=== PATIENT | male | born 1980 | race Hispanic/Latino ===

== ENCOUNTER 2020-05-17 07:39 | Outpatient (CLI) | payer OTHER ==
[2020-05-17 10:25] LABS: #Basophils 0.1 thou/uL (0.0-0.2); #Eosinphils 0.1 thou/uL (0.0-0.7); #Lymphocytes 2.2 thou/uL (1.20-3.40); #Monocytes 0.4 thou/uL (0.11-0.59); #Neutrophils 2.2 thou/uL (1.40-6.50); %Basophils 1.4 % (0.0-1.0); %Eosinophils 2.1 % (0.0-10.0); %Lymphocytes 44.2 % (21.0-51.0); %Monocytes 8.3 % (0.0-10.0); Hemoglobin 15.9 g/dL (14.0-18.0); Mean Corpuscular HGB CONC 33.6 g/dL (32.0-36.0); Mean Corpuscular Hemoglobin 31.5 pg (27.0-31.0); Mean Corpuscular Volume 93.8 fL (78.0-98.0); Mean Platelet Volume 9.9 fL (7.4-10.4); Platelet Count 216 thou/uL (130-400); RBC Distribution Width 12.1 % (11.5-14.5); Red Blood Cell (RBC) Count 5.05 mill/uL (4.70-6.10)
[2020-05-17 12:57] LABS: Anion Gap 17 mmol/L (10-20); BUN (Urea Nitrogen) 14 mg/dL (8.9-20.6); Calc. Creatinine Clearance 0 mL/min (70-130); Calcium 9.4 mg/dL (7.8-10.44); Carbon Dioxide 24 mmol/L (22-29); Chloride 103 mmol/L (98-107); Estimated GFR-MDRD 85; Glucose 88 mg/dL (70-105); Potassium 4.4 mmol/L (3.5-5.1); Sodium 140 mmol/L (136-145)
[2020-05-17 17:04] LABS: SARS-CoV-2 MS2 Positive; SARS-CoV-2 N Gene Negative; SARS-CoV-2 S Gene Negative; SARS-CoV-2 by NAA Not Detected (NotDetected); SARS-CoV-2 orf1ab Negative
== END 2020-05-17 07:40 | disposition home or self-care (01) ==
LOC: LABBT 07:39
PROVIDERS: ATTEND Surgery
DX: Z01.812 Encounter for preprocedural laboratory examination (principal); K64.9 Unspecified hemorrhoids; Z20.828 Contact with and (suspected) exposure to other viral communicable diseases
CPT/HCPCS: 80048; 85025; 87635; U0003

== ENCOUNTER 2020-05-22 08:14 | Day surgery (SDC) | payer OTHER ==
[2020-05-17 09:53] VITALS: BMI 25.8
[2020-05-22] MEDS ORDERED: cefOXitin Sodium/Dextrose 2 GM/50 ML BAG ONE (09:22)
[2020-05-22] MEDS ORDERED: Bupivacaine 0.25% HCL 30 ML VIAL ONE (09:57)
[2020-05-22] MEDS ORDERED: Lidocaine 2% Jelly 5 ML TUBE ONE (09:57)
[2020-05-22] MEDS ORDERED: Lidocaine 1% w/Epinephrine 1:100K 20 ML VIAL ONE (09:57)
[2020-05-22] MEDS ORDERED: Fentanyl 100 MCG/2 ML VIAL ONE (10:33)
[2020-05-22] MEDS ORDERED: Rocuronium Bromide 10 MG/ML (10ML VIAL) ONE (10:38)
[2020-05-22] MEDS ORDERED: Ondansetron PF 4 MG/2 ML Vial ONE (10:38)
[2020-05-22] MEDS ORDERED: Dexamethasone 20 MG/5 ML VIAL ONE (10:38)
[2020-05-22] MEDS ORDERED: PROPOFOL 200 MG/20 ML VIAL ONE (10:38)
[2020-05-22] MEDS ORDERED: Ketorolac Tromethamine 30 MG/ML VIAL ONE (10:38)
[2020-05-22] MEDS ORDERED: Lidocaine 1% PF 5 ML VIAL ONE (10:38)
[2020-05-22] MEDS ORDERED: HYDROcodone/Acetaminophen 5/325 mg Tablet ONE (13:32)
--- NOTE | 2020-05-22 16:48 | OP ---
DATE OF PROCEDURE: 05/22/2020 PREOPERATIVE DIAGNOSIS: Prolapsing internal hemorrhoids. POSTOPERATIVE DIAGNOSIS: Prolapsing internal hemorrhoids. PROCEDURE PERFORMED: PPH-stapled hemorrhoidectomy. ANESTHESIA: General. ESTIMATED BLOOD LOSS: Minimal. COMPLICATIONS: None. SPECIMEN: Hemorrhoids. TECHNIQUE: The patient was taken to the operating room and laid supine on the operating room table. After general anesthetic was obtained, placed in the prone position. His buttock crease was shaved and taped open and then prepped and draped in a sterile fashion. The sphincter protecting device was placed and sewn in place to the perianal skin using 2-0 silk. The Sew-Right device was then used to place a pursestring 2 cm above the dentate line. This pursestring is circumferential. The stapler was opened to its fullest extent, and the anvil placed above the pursestring. The pursestring was tied down and its strings brought through the stapler and held using hemostat. The stapler was then tightened down with tension on the hemostat, pulling the internal hemorrhoids into the stapler. The stapler was tightened down to the green zone and fired. There was a complete staple line. A few small bleeders were oversewn using Vicryl suture. There was no ongoing bleeding. The anal canal was irrigated. There was no ongoing bleeding. Gelfoam and lidocaine jelly were packed in the anal canal. The obturator was removed without an injury. The patient was sent to Recovery in stable condition. All instrument counts, needle counts, and lap counts were correct. Job ID: [id number]
== END 2020-05-22 14:02 | disposition home or self-care (01) ==
LOC: SDC 08:14
PROVIDERS: ATTEND Surgery
PROC: 06BY3ZC Excision of Hemorrhoidal Plexus, Percutaneous Approach (ICD-10-PCS; principal; 2020-05-22)
DX: K64.8 Other hemorrhoids (principal); Z91.011 Allergy to milk products
CPT/HCPCS: 88304; J0694; J1100; J1885; J2405; J2704; J3010; S0020